=== PATIENT | male | born 2005 | race African-American/Black ===

== ENCOUNTER 2023-11-17 01:39 | Emergency (ER) | payer OTHER ==
[~2023-11-17] VITALS: Ht 182.9 cm; Wt 91.0 kg
[2023-11-17 01:50] VITALS: BP 131/77; PULSE 70; RESP 18; TEMP 98.4; O2SAT 98
[2023-11-17] MEDS ORDERED: ONDANSETRON 4MG ODT PO STA (02:22)
[2023-11-17] MEDS ORDERED: MAGNESIUM/ALUMINUM HYDROXIDE/SIMETHICONE 30ML UDC PO STA (02:22)
[2023-11-17] MEDS ORDERED: ONDANSETRON 4MG ODT PO NR (03:00)
[2023-11-17] MEDS ORDERED: MAGNESIUM/ALUMINUM HYDROXIDE/SIMETHICONE 30ML UDC PO NR (03:00)
[2023-11-17 03:02] LABS: HEMOGLOBIN. 14.1 g/dL (14.0-18.0); MEAN CORPUSCULAR HEMOGLOBIN 26.6 pg (28.0-32.0); MEAN CORPUSCULAR HGB CONC 32.8 g/dL (31.0-37.0); MEAN CORPUSCULAR VOLUME 81.3 fL (80.0-94.0); PLATELET 196 x1000/uL (130-400); RED BLOOD CELL COUNT 5.29 mill/uL (4.7-6.1); RED CELL DISTRIBUTION WIDTH 14.1 % (11.6-14.6); WHITE BLOOD COUNT 14.4 x1000/uL (4.5-11.0)
[2023-11-17 03:10] LABS: CHLORIDE 107 mEq/L (98-107); POTASSIUM 3.9 mEq/L (3.5-5.1); SODIUM 140 mEq/L (136-145)
[2023-11-17 03:11] LABS: CALCIUM 9.3 mg/dL (8.7-10.4); CARBON DIOXIDE 23 mEq/L (21-32)
[2023-11-17 03:15] LABS: DIFFERENTIAL COMMENT 1
[2023-11-17 03:16] LABS: GLUCOSE 133 mg/dL (70-105); UREA NITROGEN BLOOD 13 mg/dL (9-23)
[2023-11-17 03:18] LABS: ALANINE AMINOTRANSFERASE 39 IU/L (10-49); ALBUMIN 4.5 g/dL (3.2-4.8); ASPARTATE AMINOTRANSFERASE 32 IU/L (<34)
[2023-11-17 03:19] LABS: BILIRUBIN TOTAL 2.3 mg/dL (0.1-1.0); PROTEIN TOTAL 7.2 g/dL (6.0-8.3)
[2023-11-17] MEDS ORDERED: MAG355OR21 MT (04:19)
[2023-11-17] MEDS ORDERED: ONDA4TAB50 MT (04:19)
[2023-11-17 10:53] LABS: PLATELET ESTIMATE NORMAL
== END 2023-11-17 04:57 | disposition home or self-care (01) ==
LOC: ER 01:39
DX: K29.60 Other gastritis without bleeding (principal); R11.2 Nausea with vomiting, unspecified; E16.2 Hypoglycemia, unspecified
CPT/HCPCS: 36415; 80053; 85025; 99283